=== PATIENT | male | born 2000 | race Caucasian/White ===

== ENCOUNTER 2022-08-30 11:29 | Emergency (ER) | payer OTHER ==
--- OUTSIDE RECORDS SUMMARY | 2022-08-30 11:33 | XMS REPORT | Continuity of Care Document ---
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 [place] [facility] 4.2.7.2.686 Daryn as [phone] [facility] [address] 2020-08-25 2020-08-25 Telephone [facility] 1.2.840.114 [id number] Univers 00:00:00 00:00:00 [facility] [id number] ity of CL[place] [phone] [facility] [address] 2020-08-18 2020-08-18 Telephone [facility] 1.2.840.114 [id number] Univers 00:00:00 00:00:00 [facility] [id number] ity of [place] [phone] [facility] [address] 2020-08-14 2020-08-14 [facility] 1.2.840.114 [id number] Univers 11:41:55 23:59:00 Encounter Yesica [facility] 350.1.13.10 ity of [place] [phone] Nd dical [address] 2020-08-14 2020-08-14 Office [facility] 1.2.817.095 [id number] Univers 11:36:09 14:15:38 Visit Yesica PRIMARY 350.1.13.10 it y [place] [phone] Nd dical [address] 2020-08-14 2020-08-14 Outpatient [facility] [id number] Univers 11:20:00 11:20:00 YESICA ity of [facility] 2020-08-14 2020-08-14 Abstract YESICA Guerrero 1.2.840.114 [id number] Univers 00:00:00 00:00:00 Ruperto PAIGE 350.1.13.10 it y of [facility] 4.2.7.2.686 Daryn as [phone] [facility] [address] 2020-08-13 2020-08-13 Abstract Reg [facility] 1.2.840.114 [id number] Univers 00:00:00 00:00:00 Floridalma SPANGLER 350.1.13.10 it y of [facility] 4.2.7.2.686 [place] HARRIS [phone] Nd dicwi [address] 2020-08-01 2020-08-07 [facility] Megan Bolaños 1.2.840.114 [id number] Univers 06:17:00 17:10:00 Encounter Yesica Paige 350.1.13.10 ity of [facility] 4.2.7.2.686 Daryn as [phone] [facility] [address] 2020-08-06 2020-08-06 Surgery Megan Arroyo 1.2.840.114 [id number] Univers 10:53:00 13:30:00 Yimi Paige 350.1.13.10 ity of [facility] 4.2.7.2.686 Daryn as [phone] [facility] [address] 2020-08-01 2020-08-01 Anesthesia Megan Ann 1.2.840.114 [id number] Univers 18:19:57 18:19:57 Event Sunny Paige 350.1.13.10 ity of [facility] 4.2.7.2.686 Daryn as [phone] [facility] [address] 2020-08-01 2020-08-01 Surgery Megan Bolaños 1.2.042.217 [id number] Univers 07:15:00 11:15:00 Yesica Paige 350.1.13.10 it y of [facility] 4.2.7.2.686 Daryn as [phone] [facility] [address] 2020-08-01 2020-08-01 Prep For YESICA Guerrero 1.2.840.114 [id number] Univers 00:00:00 00:00:00 Surgery Rupertoyann PAIGE 350.1.13.10 it y of [facility] 4.2.7.2.686 Daryn as [phone] [facility] [address] 2020-07-30 2020-07-30 Telephone [facility] 1.2.840.114 [id number] Univers 00:00:00 00:00:00 Yesica SPECIALTY 350.1.13.10 [place] [phone] Nd key VICTORAline 198 [facility] 2020-07-25 2020-07-25 Telephone [facility] 1.2.840.114 [id number] Univers 00:00:00 00:00:00 Yesica PRIMARY 350.1.13.10 it y [place] [phone] Nd dmitriyhamilton [address] 2020-07-24 2020-07-24 [facility] 1.2.840.114 [id number] Univers 11:57:40 23:59:00 Encounter Yesica PRIMARY 350.1.13.10 it[place] [phone] Nd dmitriyhamilton [address] 2020-07-24 2020-07-24 Office [facility] 1.2.358.825 [id number] Univers 11:54:44 15:18:06 Visit Yesica PRIMARY 350.1.13.10 it y [place] [phone] [facility] [address] 2020-07-24 2020-07-24 Outpatient R MIKY [facility] [id number] Univers 11:00:00 11:00:00 YESICA alcazar [facility] 2020-07-18 2020-07-18 Abstract Reg [facility] 1.2.840.114 [id number] Univers 00:00:00 00:00:00 Floridalma PRIMARY 350.1.13.10 it y of [place] [phone] Nd dical [address] 2020-07-17 2020-07-17 Letter [facility] 1.2.828.905 [id number] Univers 00:00:00 00:00:00 (Out) Yesica PRIMARY 350.1.13.10 it y [place] [phone] Nd dical [address] 2020-07-16 2020-07-16 Telephone [facility] 1.2.840.114 [id number] Univers 00:00:00 00:00:00 Yesica PRIMARY 350.1.13.10 it y of [place] [phone] Nd dical [address] 2020-07-09 2020-07-09 Transition Thea Meneses 1.2.840.114 [id number] Univers 00:00:00 00:00:00 of Care Lelia M Yang 350.1.13.10 i ty of [place] [phone] [facility] [address] 2020-06-27 2020-07-08 Hospital Garett Barrow 1.2.840.11 [id number] Univers 07:51:00 19:15:00 Encounter Shreyas Do 350.1.13.10 ity of [facility] 4.2.7.2.686 Daryn as [phone] [facility] manohar [address] 2020-07-04 2020-07-04 Anesthesia Amee Rodriguez 1.2.8 40.114 [id number] Univers 07:51:00 22:00:00 Event Steven Shelton 350.1. 13.10 ity of [facility] 4.2.7.2.686 Daryn as [phone] [facility] [address] 2020-07-04 2020-07-04 Surgery Megan Bolaños 1.2.963.940 [id number] Univers 07:15:00 15:51:00 Yesica Paige 350.1.13.10 it y of [facility] 4.2.7.2.686 Daryn as [phone] [facility] [address] 2020-07-01 2020-07-02 Surgery Megan Bolaños [id number] Univers 15:35:00 00:41:00 Yesica Paige 350.1.13.10 it y of [facility] 4.2.7.2.686 Daryn as [phone] [facility] [address] 2020-06-27 2020-06-27 Surgery Megan Bolaños 1.2.151.255 [id number] Univers 12:35:00 16:54:00 Yesica Paige 350.1.13.10 it y [facility] 4.2.7.2.686 Daryn as [phone] [facility] [address] 2020-06-27 2020-06-27 Emergency T PERSON, [facility] STR [id number] Univers 07:51:00 07:51:00 GARETT [facility] 2020-06-27 2020-06-27 Emergency X [facility] ERT [id number] Univers 05:15:00 06:47:00 RUPA [facility] 2020-06-27 2020-06-27 Emergency [facility] [id number] Univers 05:15:00 06:47:00 [facility] [phone] [facility] [address] 2020-06-27 2020-06-27 Emergency X [facility] ERT [id number] Univers 05:15:00 05:15:00 [facility] This patient has no known results.
[2022-08-30] MEDS ORDERED: ONDANSETRON 4 MG/2 ML VIAL ONE (11:51)
[2022-08-30 11:56] LABS: Absolute Lymphocytes (CBC) 1.1 K/uL (0.7-4.9); Hematocrit 45.8 % (39.6-49.0); Lymphocytes % 12.5 % (15.3-44.8); MCV 82.4 fL (80-100); MPV 8.4 fL (7.6-11.3); RBC Red Blood Cell Count 5.56 M/uL (4.33-5.43)
[2022-08-30] MEDS ORDERED: NA CHLORIDE 0.9% 1,000 ML ONE (11:58)
[2022-08-30 12:18] LABS: ALT/SGPT 37 U/L (16-61); AST/SGOT 22 U/L (15-37); Albumin 4.1 g/dL (3.4-5.0); Alkaline Phosphatase 73 U/L (45-117); BUN Blood Urea Nitrogen 13 mg/dL (7-18); Bicarbonate 21 mEq/L (21-32); Bilirubin Total 1.1 mg/dL (0.2-1.0); Creatine Phosphokinase 180 U/L (39-308); Glomerular Filtration Rate 98 ml/min (=/>90); Glucose Level 105 mg/dL (74-106); Magnesium 1.5 mg/dL (1.6-2.4); Potassium 3.4 mEq/L (3.5-5.1); Protein, Total 7.2 g/dL (6.4-8.2); Sodium Level 137 mEq/L (136-145)
[2022-08-30 12:19] LABS: Troponin High Sensitivity < 3.0 pg/mL (<58.9)
[2022-08-30] MEDS ORDERED: MAGNESIUM SULFATE 1 gm IVPB 1 GM/100 ML BAG IV ONE (12:38)
[2022-08-30] MEDS ORDERED: ACETAMINOPHEN 500 MG TAB ONE (12:38)
--- NOTE | 2022-08-30 13:46 | EDPHYS ---
Physician Documentation [facility] Name: Naeem Perkins Age: 22 yrs Sex: Male : 2000 Arrival Date: 08/30/2022 Time: 11:29 Bed 6 Private MD: ED Physician Ken Paula HPI: 08/30 11:52 This 22 yrs old Male presents to ER via EMS with complaints of Heat Exposure, kb Nausea/Vomiting. 11:52 Pt reports he was pressure washing outside and got overheated. States he had muscle kb cramps, nausea and vomiting that has resolved some since getting into cool environment. . Onset: The symptoms/episode began/occurred just prior to arrival. Severity of symptoms: At their worst the symptoms were moderate in the emergency department the symptoms are unchanged. The patient has not experienced similar symptoms in the past. The patient has not recently seen a physician. Historical: - Allergies: 11:32 PENICILLINS; kc6 - Home Meds: 11:32 gabapentin oral [Active]; kc6 - PMHx: 11:32 None; 6 - PSHx: 11:32 Appendectomy; 6 - Immunization history:: Client reports having NOT received the Covid vaccine. Flu vaccine is not up to date. - Social history:: Smoking status: Reported history of juuling and/or vaping. ROS: 11:51 Constitutional: Negative for fever, chills, and weight loss. kb 11:51 Abdomen/GI: Positive for nausea and vomiting, Negative for abdominal pain. 11:51 MS/extremity: Positive for cramps. 11:51 All other systems are negative. Exam: 11:50 Constitutional: This is a well developed, well nourished patient who is awake, alert, kb and in no acute distress. Head/Face: Normocephalic, atraumatic. ENT: Moist Mucous membranes Cardiovascular: Regular rate and rhythm with a normal S1 and S2. No gallops, murmurs, or rubs. No pulse deficits. Respiratory: Respirations even and unlabored. No increased work of breathing. Talking in full sentences Abdomen/GI: Soft, non-tender. No distention Skin: Warm, dry with normal turgor. Normal color. MS/ Extremity: Pulses equal, no cyanosis. Neurovascular intact. Full, normal range of motion. Neuro: Awake and alert, GCS 15, oriented to person, place, time, and situation. Moves all extremities. Normal gait. 11:50 ECG was reviewed by the Attending Physician. Vital Signs: 11:30 BP 110 / 80; Pulse 65; Resp 19 S; Pulse Ox 97% on R/A; Weight 108.86 kg (R); Height 6 kc6 ft. 2 in. (R); Pain 0/10; 13:17 BP 112 / 62; Pulse 80; Resp 16 S; Pulse Ox 100% on R/A; kc6 14:14 BP 100 / 66; Pulse 74; Resp 16; Pulse Ox 100% on R/A; mb9 11:30 Body Mass Index 30.81 (108.86 kg, 187.96 cm) kc6 11:30 Pain Scale: Adult kc6 MDM: 11:32 Patient medically screened. kb 11:51 Differential diagnosis: heat exhaustion, dehydration, rhabdomyolysis, electrolyte kb imbalance. Data reviewed: vital signs, nurses notes. 13:42 Counseling: I had a detailed discussion with the patient and/or guardian regarding: the kb historical points, exam findings, and any diagnostic results supporting the discharge/admit diagnosis, lab results, the need for outpatient follow up, a family practitioner, to return to the emergency department if symptoms worsen or persist or if there are any questions or concerns that arise at home. 13:43 Historians other than the Patient: EMS: [facility]. kb 08/30 11:40 Order name: CBC with Diff; Complete Time: 12:10 kb 08/30 11:40 Order name: Magnesium; Complete Time: 12:21 kb 08/30 11:40 Order name: Troponin HS; Complete Time: 12:21 kb 08/30 11:40 Order name: CMP; Complete Time: 12:21 kb 08/30 11:40 Order name: CPK; Complete Time: 12:21 kb 08/30 11:40 Order name: Urinalysis w/ reflexes; Complete Time: 14:08 kb 08/30 11:57 Order name: Glucose, Ancillary Testing; Complete Time: 12:01 EDMS 08/30 11:40 Order name: EKG; Complete Time: 11:41 kb 08/30 11:40 Order name: Cardiac monitoring; Complete Time: 11:41 kb 08/30 11:40 Order name: EKG - Nurse/Tech; Complete Time: 11:41 kb 08/30 11:40 Order name: IV Saline Lock; Complete Time: 11:41 kb 08/30 11:40 Order name: Labs collected and sent; Complete Time: 11:49 kb 08/30 11:40 Order name: O2 Per Protocol; Complete Time: 11:41 kb 08/30 11:40 Order name: O2 Sat Monitoring; Complete Time: 11:41 kb EC:50 Rate is 56 beats/min. Rhythm is regular. QRS [place] is Normal. RI interval is normal at kb 146 msec. QRS interval is normal at 94 msec. QT interval is normal at 395 msec. Administered Medications: 11:45 Drug: Ondansetron IVP 4 mg Route: IVP; Site: right wrist; kc6 13:17 Follow up: Response: No adverse reaction; Nausea is decreased kc6 11:54 Drug: NS 0.9% IV 1000 ml Route: IV; Rate: 1000 ml; Site: right wrist; kc6 13:35 Follow up: Response: No adverse reaction; IV Status: Completed infusion; IV Intake: kc6 1000ml 12:34 Drug: NS 0.9% IV 1000 ml Route: IV; Rate: 1000 ml; Site: right wrist; kc6 12:34 Drug: Magnesium Sulfate IVPB 1 grams Route: IVPB; Infused Over: 1 hrs; Site: right kc6 wrist; 13:35 Follow up: Response: No adverse reaction; IV Status: Completed infusion; IV Intake: kc6 100ml 12:34 Drug: Acetaminophen PO 1000 mg Route: PO; kc6 13:35 Follow up: Response: No adverse reaction; Pain is decreased kc6 Disposition: 16:29 Co-signature as Attending Physician, Ken Paula MD I agree with the assessment and kdr plan of care. Disposition Summary: 08/30/22 13:45 Discharge Ordered Location: Home kb Condition: Stable kb Diagnosis - Nausea with vomiting, unspecified kb - Heat exposure kb Followup: kb - With: Emergency Department - When: As needed - Reason: Worsening of condition Followup: kb - With: Private Physician - When: 2 - 3 days - Reason: Recheck today's complaints, Continuance of care, Re-evaluation by your physician Discharge Instructions: - Discharge Summary Sheet kb - Nausea and Vomiting, Adult, [id number] kb - Heat Exhaustion kb - Preventing Heat Exhaustion, Adult kb Forms: - Medication Reconciliation Form kb - Thank You Letter kb - Antibiotic Education kb - Prescription Opioid Use kb - [employer]_Portal_[email or web address].htm kb Prescriptions: - ondansetron 4 mg Oral Tablet,disintegrating - take 1 tablet by ORAL route every 6 hours As needed; 12 tablet; Refills: 0, kb Product Selection Permitted Signatures: Dispatcher [employer] EDKatie Faustin, ANTONINA CARNEY-Ken Naik MD MD kdr Campbell, Kaitlyn, RN RN kc6 Corrections: (The following items were deleted from the chart) 11:33 11:32 Allergies: No Known Allergies; kc6 kc6
--- NOTE | 2022-08-30 13:46 | ER ---
Nurse's Notes [facility] Name: Naeem Perkins Age: 22 yrs Sex: Male : 2000 Arrival Date: 08/30/2022 Time: 11:29 Bed 6 Private MD: Diagnosis: Nausea with vomiting, unspecified;Heat exposure Presentation: 08/30 11:30 Chief complaint: EMS states: pt was pressure washing hen he began to have generalized kc6 body cramps, with nausea/vomiting en route. Coronavirus screen: At this time, the client does not indicate any symptoms associated with coronavirus-19. Ebola Screen: No symptoms or risks identified at this time. Initial Sepsis Screen: Does the patient meet any 2 criteria? No. Patient's initial sepsis screen is negative. Does the patient have a suspected source of infection? No. Patient's initial sepsis screen is negative. Risk Assessment: Do you want to hurt yourself or someone else? Patient reports no desire to harm self or others. Onset of symptoms was August 30, 2022. 11:30 Method Of Arrival: EMS: [facility] 6 11:30 Acuity: LISA 3 kc6 Triage Assessment: 11:32 General: Appears in no apparent distress. comfortable, Behavior is calm, cooperative, kc6 appropriate for age. Pain: Denies pain. EENT: No signs and/or symptoms were reported regarding the EENT system. Neuro: Level of Consciousness is awake, alert, obeys commands, Oriented to person, place, time, situation, Appropriate for age. Cardiovascular: Capillary refill < 3 seconds Rhythm is sinus rhythm. Respiratory: Airway is patent Trachea midline Respiratory effort is even, unlabored, Respiratory pattern is regular, symmetrical. GI: Pt is actively vomiting clear fluid, Reports nausea, vomiting, Patient currently denies abdominal pain, diarrhea. : No signs and/or symptoms were reported regarding the genitourinary system. Derm: No signs and/or symptoms reported regarding the dermatologic system. Skin is intact, Skin is pink, warm \T\ dry. Musculoskeletal: No signs and/or symptoms reported regarding the musculoskeletal system. Circulation, motion, and sensation intact. Capillary refill < 3 seconds, Range of motion: intact in all extremities. Historical: - Allergies: 11:32 PENICILLINS; kc6 - Home Meds: 11:32 gabapentin oral [Active]; kc6 - PMHx: 11:32 None; kc6 - PSHx: 11:32 Appendectomy; kc6 - Immunization history:: Client reports having NOT received the Covid vaccine. Flu vaccine is not up to date. - Social history:: Smoking status: Reported history of juuling and/or vaping. Screenin:34 [facility] ED Fall Risk Assessment (Adult) History of falling in the last 3 months, kc6 including since admission No falls in past 3 months (0 pts) Confusion or Disorientation No (0 pts) Intoxicated or Sedated No (0 pts) Impaired Gait No (0 pts) Mobility Assist Device Used No (0 pt) Altered Elimination No (0 pt) Score/Fall Risk Level 0 - 2 = Low Risk Oriented to surroundings, Maintained a safe environment, Educated pt \T\ family on fall prevention, incl call for assistance when getting out of bed, Assessed \T\ reinforced patient's understanding of fall precautions, Hourly rounding (assess needs \T\ fall precautionary measures) done. Abuse screen: Denies threats or abuse. Denies injuries from another. Nutritional screening: No deficits noted. Tuberculosis screening: No symptoms or risk factors identified. Assessment: 11:34 Reassessment: please see triage assessment. [facility] 12:34 Reassessment: Patient appears in no apparent distress at this time. No changes from [facility] previously documented assessment. Patient and/or family updated on plan of care and expected duration. Pain level reassessed. Patient is alert, oriented x 3, equal unlabored respirations, skin warm/dry/pink. Vital Signs: 11:30 BP 110 / 80; Pulse 65; Resp 19 S; Pulse Ox 97% on R/A; Weight 108.86 kg (R); Height 6 kc6 ft. 2 in. (R); Pain 0/10; 13:17 BP 112 / 62; Pulse 80; Resp 16 S; Pulse Ox 100% on R/A; kc6 14:14 BP 100 / 66; Pulse 74; Resp 16; Pulse Ox 100% on R/A; mb9 11:30 Body Mass Index 30.81 (108.86 kg, 187.96 cm) [facility] 11:30 Pain Scale: Adult [facility] ED Course: 11:30 Patient arrived in ED. [facility] 11:32 Katie Monge [facility]-C [facility]. kb 11:32 Ken Paula MD is Attending Physician. kb 11:32 Triage completed. kc6 11:32 Arm band placed on. kc6 11:34 Maintain EMS IV. Dressing intact. Good blood return noted. Site clean \T\ dry. Gauge \T\ eric 6 site: 20G R Wrist. 11:35 Patient has correct armband on for positive identification. Bed in low position. Call kc6 light in reach. Side rails up X2. Adult w/ patient. 11:41 Lia De León, VASYL is Primary Nurse. kc6 11:49 CPK Sent. zm 11:49 CMP Sent. zm 11:49 CBC with Diff Sent. zm 11:49 Magnesium Sent. zm 11:49 Troponin HS Sent. zm 14:14 No provider procedures requiring assistance completed. IV discontinued, intact, mb9 bleeding controlled, No redness/swelling at site. Pressure dressing applied. Administered Medications: 11:45 Drug: Ondansetron IVP 4 mg Route: IVP; Site: right wrist; kc6 13:17 Follow up: Response: No adverse reaction; Nausea is decreased kc6 11:54 Drug: NS 0.9% IV 1000 ml Route: IV; Rate: 1000 ml; Site: right wrist; kc6 13:35 Follow up: Response: No adverse reaction; IV Status: Completed infusion; IV Intake: kc6 1000ml 12:34 Drug: NS 0.9% IV 1000 ml Route: IV; Rate: 1000 ml; Site: right wrist; kc6 12:34 Drug: Magnesium Sulfate IVPB 1 grams Route: IVPB; Infused Over: 1 hrs; Site: right kc6 wrist; 13:35 Follow up: Response: No adverse reaction; IV Status: Completed infusion; IV Intake: kc6 100ml 12:34 Drug: Acetaminophen PO 1000 mg Route: PO; kc6 13:35 Follow up: Response: No adverse reaction; Pain is decreased kc6 Intake: 13:35 IV: 1000ml; Total: 1000ml. kc6 13:35 IV: 100ml; Total: 1100ml. kc6 Outcome: 13:45 Discharge ordered by . kb 14:14 Discharged to home ambulatory. mb9 14:14 Condition: stable 14:14 Discharge instructions given to patient, Instructed on discharge instructions, follow up and referral plans. Demonstrated understanding of instructions, follow-up care, medications, Prescriptions given X 1. 14:15 Patient left the ED. mb9 Signatures: Katie Monge FNP-C FNP-Leslye Haile Kaitlyn, RN RN kc6 Rosa M Yung RN RN mb9 Corrections: (The following items were deleted from the chart) 11:33 11:32 Allergies: No Known Allergies; domenico kcRiley
[2022-08-30 14:05] LABS: Specific Gravity 1.028 (1.005-1.030); Urine Bacteria <20 /HPF (<20); Urine Bilirubin NEGATIVE (Negative); Urine Blood Negative (Negative); Urine Clarity Turbid (Clear); Urine Color Yellow (Yellow); Urine Glucose NEGATIVE (Negative); Urine Mucus 4+ /HPF (None Seen); Urine Protein 1+ (Negative); Urine RBC <5 /HPF (None Seen); Urine Urobilinogen Normal (Normal); Urine pH 6.5 (5.0-7.0)
[2022-08-30 14:21] VITALS: O2SAT 100
[2022-08-30 14:22] VITALS: BP 100/66
--- NOTE | 2022-09-01 12:36 | EKG ---
Test Date: 2022-08-30 Test Time: 11:44:16 Lye Peel Operator: ABIGAIL MEASUREMENT RESULTS: Intervals: Rate: 56 WY: 146 QRSD: 94 QT: 410 QTc: 395 [place]: P: -8 WY: 146 QRS: 58 T: 40 INTERPRETIVE STATEMENTS: Sinus bradycardia with sinus arrhythmia Otherwise normal ECG Compared to ECG 07/10/2014 21:21:36 Sinus rhythm no longer present Electronically Signed On 09-01-22 12:33:41 CDT by Oliver Vega
== END 2022-08-30 14:15 | disposition home or self-care (01) ==
LOC: ER 11:29
DX: T67.5XXA Heat exhaustion, unspecified, initial encounter (principal); Z88.0 Allergy status to penicillin
CPT/HCPCS: 96365; 96361; 93005; 85025; 81001; 36415; 83735; 82550; 82947; 84484; 80053; 96375; 99284; J3475; J2405; J7030